=== PATIENT | female | born 1930 | race Caucasian/White ===

== ENCOUNTER 2020-01-30 15:38 | Inpatient (IN) | payer MEDICARE ==
[2020-01-30] MEDS ORDERED: Dextrose 50% Abboject 50 ML SYRINGE SLOW IVP PRN (17:47)
[2020-01-30] MEDS ORDERED: Dextrose 5% in Water 1,000 ML IV PRN (17:47)
[2020-01-30] MEDS ORDERED: Ondansetron PF 4 MG/2 ML Vial IVP PRN (17:47)
[2020-01-30] MEDS ORDERED: traMADol HCl 50 MG TAB PO PRN ×2 (17:47)
[2020-01-30] MEDS ORDERED: Ondansetron ODT 4 MG TAB PO PRN (17:47)
[2020-01-30] MEDS ORDERED: Sodium Chloride 0.9% 1,000 ML IV SCH (17:47)
[2020-01-30] MEDS: Acetaminophen 325 MG TAB PO SCH ×2 (18:25→23:08)
--- NOTE | 2020-01-30 20:21 | HP ---
REQUESTING PHYSICIAN: Dr. Escoto from [facility]. ATTENDING SURGEON: Dr. Bowie. CONSULTATION: Orthopedics, Dr. Sanabria. HISTORY OF PRESENT ILLNESS: The patient is an 89-year-old woman, who lives independently at home in an apartment, when she slipped and fell, landing on her buttocks. She had difficulty moving and she was able to be taken to the hospital in [place], where she underwent evaluation and examination and was noted to have a fracture to her pelvis that included her inferior and superior pubic rami on the right with the fracture extending into the acetabular component of her right hip prosthesis. The patient was then transferred to our facility to undergo Orthopedic evaluation. The patient denied any loss of consciousness or syncopal episodes. ALLERGIES: NONE. CURRENT MEDICATIONS: The patient is unsure of her medications. She takes "something for her blood pressure and something for her heart." Previous admission history and physical list Coreg as her medication and hydrocodone 5/325. PAST MEDICAL HISTORY: CHF and hypertension. PAST SURGICAL HISTORY: Back surgery. SOCIAL HISTORY: The patient lives independently alone. She ambulates using a cane or a walker. She denies drug, tobacco, or alcohol use. REVIEW OF SYSTEMS: A 10-point review of systems is negative unless otherwise stated. PHYSICAL EXAMINATION: VITAL SIGNS: Temperature is 97.5, heart rate 66, blood pressure 129/55, respirations 18, oxygen saturation is 92% on room air. GENERAL: The patient is resting comfortably in bed. She is awake and alert. She has minimal confusion, mainly regarding her current location as to which hospital she had been moved to. Otherwise, she follows commands. Her [place] Coma Scale will be 15. HEENT. Head is normocephalic and atraumatic. Eyes, extraocular motion intact. PERRLA bilaterally. Ears are atraumatic without discharge. Nose is atraumatic without discharge. Oropharynx is clear. NECK: Nontender. Trachea is midline with no JVD. CHEST: Clear to auscultation with good inspiratory and expiratory effort. HEART: Regular rate and rhythm. ABDOMEN: Soft, flat, nontender with active bowel sounds. PELVIS: There is tenderness to palpation, right greater than left aspect. EXTREMITIES: Neurovascularly intact x4. LABORATORY FINDINGS: White blood cell count 10.3, hemoglobin 12.7, hematocrit 39.7, platelets 70. Sodium 144, potassium 3.7, chloride 108, CO2 of 26, BUN 24, creatinine 0.97, glucose 100. Troponin is less than 0.010. COVID test is pending. Urinalysis is pending. RADIOGRAPHIC FINDINGS: AP pelvis shows no acute fracture or dislocation identified. Views of the right hip show postop changes of the total hip arthroscopy. No fracture or dislocation is identified. CT of the pelvis shows a right superior and inferior pubic rami fractures with the superior pubic rami fracture extending into the acetabular component of the right hip prosthesis. ASSESSMENT AND PLAN: 1. Status post ground level fall. 2. Right inferior and superior pubic rami fracture with extension into the acetabulum. 3. Acute pain secondary to above. Plan will be to admit the patient to the surgical floor. Initial discussion with Orthopedics reports that she is likely to be treated nonoperatively and be nonweightbearing on the right. They will reassess her tomorrow. We will begin physical and occupational therapy, diet, pain control, pulmonary toilet, gastritis and mechanical VTE prophylaxis. We have asked the nurses to reconcile her home medications, so that we may resume any medications. The evaluation, examination, laboratory and radiographic findings were discussed with Dr. Bowie prior to this dictation. Job ID: [id number]
[2020-01-30] MEDS: Famotidine 20 MG TAB PO SCH (21:15)
[2020-01-30] MEDS: Ibuprofen 600 MG TAB PO SCH (21:15)
[2020-01-31 01:53] LABS: Bacteria/HPF None Seen HPF (None Seen); Bilirubin Negative (Negative); Blood, Urine Negative (Negative); Clarity Clear (Clear); Glucose, Urine (Dipstick) Normal (Negative); Ketone, Urine Negative (Negative); Leukocyte 250 Leu/uL (Negative); Nitrite Negative (Negative); Protein, Urine (Dipstick) Negative (Neg-Trace); Specific Gravity, Urine 1.008 (1.002-1.036); Squamous Epithelial 0-3 HPF (0-3); Urobilinogen Normal mg/dL (Less than 2)
[2020-01-31 01:55] LABS: Urine Culture Reflex Yes Yes
[2020-01-31 04:28] LABS: SARS-CoV-2 MS2 Positive; SARS-CoV-2 N Gene Negative; SARS-CoV-2 S Gene Negative; SARS-CoV-2 by NAA Not Detected (NotDetected); SARS-CoV-2 orf1ab Negative
[2020-01-31] MEDS: Ibuprofen 600 MG TAB PO SCH ×3 (05:06→21:24)
[2020-01-31] MEDS: Acetaminophen 325 MG TAB PO SCH ×3 (05:06→17:49)
[2020-01-31 05:54] LABS: #Basophils 0.1 thou/uL (0.0-0.2); #Eosinphils 0.3 thou/uL (0.0-0.7); #Lymphocytes 2.8 thou/uL (1.20-3.40); #Monocytes 0.5 thou/uL (0.11-0.59); #Neutrophils 4.1 thou/uL (1.40-6.50); %Basophils 0.8 % (0.0-1.0); %Monocytes 6.4 % (0.0-10.0); %Neutrophils 52.8 % (42.0-75.0); Hemoglobin 12.4 g/dL (12.0-16.0); Mean Corpuscular HGB CONC 32.1 g/dL (32.0-36.0); Mean Corpuscular Hemoglobin 32.9 pg (27.0-31.0); Mean Platelet Volume 10.2 fL (7.4-10.4); Platelet Count 76 thou/uL (130-400); Red Blood Cell (RBC) Count 3.78 mill/uL (4.20-5.40); White Blood Cell (WBC) Count 7.7 thou/uL (4.8-10.8)
[2020-01-31 06:06] LABS: Phosphorus 2.4 mg/dL (2.3-4.7)
[2020-01-31 06:08] LABS: Anion Gap 13 mmol/L (10-20); BUN (Urea Nitrogen) 22 mg/dL (9.8-20.1); Calc. Creatinine Clearance 40 mL/min (70-130); Calcium 8.2 mg/dL (7.8-10.44); Carbon Dioxide 25 mmol/L (23-31); Chloride 110 mmol/L (98-107); Estimated GFR-MDRD 61; Glucose 94 mg/dL (83-110); Magnesium 1.8 mg/dL (1.6-2.6); Potassium 3.7 mmol/L (3.5-5.1); Sodium 144 mmol/L (136-145)
[2020-01-31] MEDS ORDERED: Magnesium Sulfate 2 GM in Sodium Chloride 0.9% 250 ML 250 ML IVPB SCH (08:00)
[2020-01-31] MEDS: Famotidine 20 MG TAB PO SCH ×2 (08:20→21:25)
[2020-01-31] MEDS ORDERED: FLU VACC QS2020-21(65YR UP)/PF 240 MCG/0.7 ML SYRINGE IM ONE (09:00)
[2020-01-31] MEDS ORDERED: RisperDAL M-TAB 1 MG TAB SL SCH (09:15)
--- NOTE | 2020-01-31 19:49 | PRG ---
DATE OF SERVICE: 01/31/2020 SUBJECTIVE: The patient is currently on the surgical floor. She was admitted yesterday as a transfer from [facility] after she sustained a ground level fall and had a right inferior and superior pubic rami fracture that extended into her acetabulum. The patient was evaluated by Orthopedics and it was determined that she would be treated nonoperatively. She had no issues overnight. This morning, she did not want to work with therapy, but she did transfer to wheelchair and was interacting with staff, which seemed to calm her greatly. She tolerated a diet and her pain was controlled. PHYSICAL EXAMINATION: VITAL SIGNS: Temperature 98.3, heart rate 60, blood pressure 169/58, respirations 16, oxygen saturation 91% on room air. GENERAL: The patient is resting in a wheelchair, she is actually at a nurse's station. She appears in no distress. She is interactive and appropriate to me. HEENT: Unremarkable. CHEST: Equal rise and fall. ABDOMEN: Soft, nontender with active bowel sounds. EXTREMITIES: The patient is moving all 4 extremities freely and there is no apparent edema. LABORATORY FINDINGS: White blood cell count 7.1, hemoglobin 12.4, hematocrit 38.6, platelets 76. Sodium 144, potassium 3.7, chloride 110, CO2 of 25, BUN 22, creatinine 0.87, glucose 94, magnesium 1.8, phosphorus 2.4. ASSESSMENT AND PLAN: 1. Status post ground level fall. 2. Right inferior and superior pubic rami fracture with extension into acetabulum, being managed nonoperatively. 3. Urinary tract infection, present on admission. The patient is started on antibiotics, and awaiting culture and sensitivity results. Plan will be to continue supportive care, encourage physical and occupational therapy, and await placement decision. Job ID: [id number]
[2020-01-31] MEDS: Nitrofurantoin Monohyd/M-Cryst 100 MG CAP PO SCH (21:25)
[2020-02-01] MEDS: Acetaminophen 325 MG TAB PO SCH ×4 (01:40→18:51)
[2020-02-01] MEDS: Cyclobenzaprine 10 MG TAB PO PRN (01:41)
--- NOTE | 2020-02-01 04:25 | HP ---
ADDENDUM: This is an addendum to the H and P dictated by Edmond Balderrama, Trauma, PA. For full details, please see that H and P, the details of which I have confirmed. In short, Ms. Deshpande is an 89-year-old woman who reportedly slipped and fell landing on her buttocks. She was noted to have inferior and superior pubic rami fractures extending into the acetabular component of right hip prosthesis. She was transferred to [place] for orthopedic evaluation. She is currently fairly comfortable and denying any significant pain in her hip or pelvis. She was unable to give much medication, very vague history, but reportedly has a history of heart failure and back surgery and hip replacement in the past. PHYSICAL EXAMINATION: Complete physical examination was performed. HEENT: Head was atraumatic. Pupils were equal. Extraocular movements were intact. She denies blurred vision or diplopia. Facial movements were symmetric. She had no tenderness to mid face or neck. NECK: Supple without lymphadenopathy. HEART: Regular in its rate and rhythm without murmurs, rubs, or gallops. LUNGS: Clear to auscultation bilaterally. ABDOMEN: Soft, nontender, nondistended. EXTREMITIES: She was able to move both lower extremities and has normal distal sensation, capillary refill and no deformities of her legs or arms. LABORATORY DATA: Fairly unremarkable. CT of the pelvis showed right superior and inferior pubic ramus fractures with a superior pubic ramus fracture . Initial report from Orthopedics was of a plan to treat her non-operatively, nonweightbearing on right. Physical Therapy, Occupational Therapy, and Rehab have been consulted. The nurses were able to obtain her medication list include, 1. Budesonide. 2. Carvedilol. 3. Celebrex. 4. Duloxetine. 5. Vitamin D. 6. Synthroid. 7. Quetiapine. 8. . Job ID: [id number]
[2020-02-01] MEDS: Ibuprofen 600 MG TAB PO SCH ×3 (06:30→22:23)
[2020-02-01] MEDS: Nitrofurantoin Monohyd/M-Cryst 100 MG CAP PO SCH (09:59)
[2020-02-01] MEDS: Famotidine 20 MG TAB PO SCH ×2 (09:59→22:23)
--- NOTE | 2020-02-01 11:42 | CON ---
DATE OF CONSULTATION: CONSULTING PROVIDER: Edmond Balderrama PA-C HISTORY OF PRESENT ILLNESS: Ms. Deshpande is an 89-year-old female, who lives independently. The patient tripped and fell approximately 2 days ago. She landed on her right side. She was found to have a right-sided pubic ramus fracture with extension into the acetabulum on x-ray. She was initially seen at [facility] and then transferred over to [place] for further care. She is awaiting rehab placement. She has received pain control. She is currently comfortable. ALLERGIES: NONE. PAST MEDICAL HISTORY: Of CHF and hypertension. PAST SURGICAL HISTORY: Lumbar back surgery. SOCIAL HISTORY: The patient denies tobacco, alcohol, or drug use. She previously ambulates with a cane or sometimes a walker. REVIEW OF SYSTEMS: Positive for right hip pain. Otherwise, negative 10-point review of systems. IMAGING STUDIES: CT scan of the right hip and pelvis demonstrates a hemiarthroplasty of the hip. There is also what appears to be a fracture of the superior ramus with extension through the acetabulum without significant displacement. The fracture does involve the acetabular dome. PHYSICAL EXAMINATION: VITAL SIGNS: Temperature is 97.3, pulse is 76, respiratory rate of 18, oxygen saturation 94%, blood pressure is 169/84. GENERAL: She is alert, lying supine, in no apparent distress. LUNGS: Breathing comfortably. ABDOMEN: Soft, nontender, nondistended. MUSCULOSKELETAL: The right lower extremity has pain with motion. Leg lengths appeared to be equal. She is able flex and extend the foot and ankle. She has palpable dorsalis pedis pulse. IMPRESSION: Right acetabulum fracture in an elderly female. PLAN: At this point, the patient will have nonoperative treatment. I am hopeful her fracture will go ahead and heal. She will need to keep weight off the leg and should be nonweightbearing on her right leg at least 6 weeks, likely 8 weeks. She can mobilize to a chair. She will have pain control. DVT prophylaxis as needed. I would like to re-evaluate her in the clinic in approximately 1 month with repeat x-ray. Job ID: [id number]
[2020-02-01] MEDS ORDERED: Carvedilol 6.25 MG TAB PO SCH (11:45)
[2020-02-01] MEDS ORDERED: Magnesium 2 GM/50 ML 2 GM in Premix Bag 1 BAG IVPB SCH (12:00)
[2020-02-01] MEDS ORDERED: cloNIDine 0.1 MG TAB PO SCH (15:30)
--- NOTE | 2020-02-01 16:54 | PRG ---
DATE OF SERVICE: 02/01/2020 SUBJECTIVE: The patient remains in the surgical floor. She is status post ground level fall, was transferred from the [facility] for nonoperative pelvic fractures. She has begun working with Physical and Occupational therapy, though today she was very tired and declined working with the therapist. She is tolerating a diet. Her pain is controlled, but was noted that the patient was hypertensive and had not been restarted on her home medications. This was immediately corrected. PHYSICAL EXAMINATION: VITAL SIGNS: Temperature is 98.2, heart rate 73, blood pressure 178/81, respirations 18, oxygen saturation 91% on room air. GENERAL: The patient is resting comfortably in bed. She was asleep at the time of my visit. She did wake up to verbal stimuli and appeared at her baseline. She would answer very simple questions, but was A and O x2, consistent with my initial interview with her on admission. HEENT: Unremarkable. LUNGS: Clear to auscultation with moderate inspiratory and expiratory effort. HEART: Regular rate and rhythm. ABDOMEN: Soft, nontender with active bowel sounds. EXTREMITIES: Neurovascularly intact x4. LABORATORY DATA: There are no labs or radiographs to review this morning. ASSESSMENT: 1. Status post ground level fall. 2. Right inferior and superior pubic rami fracture with extension into acetabulum, being managed non operatively. 3. Urinary tract infection, present on admission, awaiting culture and sensitivity, currently on antibiotics. PLAN: To continue physical and occupational therapy and await placement decision. Job ID: [id number]
[2020-02-01] MEDS ORDERED: cloNIDine 0.1 MG TAB PO PRN (17:27)
[2020-02-01] MEDS ORDERED: Sodium Chloride 0.9% 1,000 ML IV SCH (17:30)
[2020-02-01] MEDS: Aspirin 81 mg Enteric Coated Tablet PO SCH (22:21)
[2020-02-01] MEDS: Amoxicillin/Potassium Clav 875 MG TAB PO SCH (22:21)
[2020-02-01] MEDS: DULoxetine 30 MG CAP PO SCH (22:22)
[2020-02-01] MEDS: Senokot S 8.6-50 MG TAB PO SCH (22:23)
[2020-02-01] MEDS: Carvedilol 6.25 MG TAB PO SCH (22:24)
[2020-02-02] MEDS: Acetaminophen 325 MG TAB PO SCH ×7 (00:24→23:45)
[2020-02-02] MEDS: Cyclobenzaprine 10 MG TAB PO PRN (01:11)
[2020-02-02] MEDS ORDERED: RisperDAL M-TAB 1 MG TAB SL SCH (02:00)
[2020-02-02] MEDS ORDERED: hydrALAZINE 20 MG/ML VIAL SLOW IVP SCH (02:15)
[2020-02-02] MEDS: Levothyroxine Sodium 75 MCG TAB PO SCH (06:39)
[2020-02-02] MEDS: Ibuprofen 600 MG TAB PO SCH ×3 (06:39→21:58)
[2020-02-02] MEDS: DULoxetine 30 MG CAP PO SCH ×2 (16:24→21:57)
[2020-02-02] MEDS: Amoxicillin/Potassium Clav 875 MG TAB PO SCH ×2 (16:25→21:57)
[2020-02-02] MEDS: Carvedilol 6.25 MG TAB PO SCH ×2 (16:25→22:00)
[2020-02-02] MEDS: Aspirin 81 mg Enteric Coated Tablet PO SCH ×2 (17:24→22:00)
[2020-02-02] MEDS: CeleCOXIB 100 MG CAP PO SCH (17:24)
[2020-02-02] MEDS: Famotidine 20 MG TAB PO SCH ×2 (17:24→22:08)
[2020-02-02] MEDS: Polyethylene Glycol 3350 17 GM Packet PO SCH (17:25)
[2020-02-02] MEDS: Senokot S 8.6-50 MG TAB PO SCH ×2 (17:25→22:08)
--- NOTE | 2020-02-02 20:01 | PRG ---
DATE OF SERVICE: 02/02/2020 SUBJECTIVE: The patient remains on the surgical floor. She is status post ground level fall, which she sustained a right inferior and superior pubic rami fracture with extension into the acetabulum. The patient is being treated nonoperatively and is awaiting placement. The patient is tolerating a diet. Her pain is controlled. PHYSICAL EXAMINATION: VITAL SIGNS: Temperature 97.3, heart rate 95, blood pressure 134/73, respirations 18, oxygen saturation 92% on room air. GENERAL: The patient is resting comfortably in bed. She was awake and somewhat interactive today. This appears to be her baseline since my interviews with her during this admission. HEENT: Unremarkable. LUNGS: Clear to auscultation with moderate inspiratory and expiratory effort. HEART: Regular rate and rhythm. ABDOMEN: Soft, nontender with active bowel sounds. EXTREMITIES: Neurovascularly intact x4. LABORATORY DATA: There are no labs or radiographs reviewed this morning. ASSESSMENT: 1. Status post ground level fall. 2. Right inferior and superior pubic rami fracture with extension in the acetabulum, being treated nonoperatively. 3. Urinary tract infection, present on admission. Urine culture results show Enterococcus faecalis and nonhemolytic Streptococcus. The patient is currently on Augmentin, which shows positive susceptibility. We will continue these antibiotics. PLAN: Plan will be to continue physical and occupational therapy, antibiotics as discussed, and await placement decision. The patient's nurse today was able to contact family and we will pass this along for Case Management to work on placement. The patient has been restarted on all of her home medications. The patient has aspirin twice a day for VTE prophylaxis. Job ID: [id number]
[2020-02-03] MEDS: Acetaminophen 325 MG TAB PO SCH ×2 (06:52→13:46)
[2020-02-03] MEDS: Levothyroxine Sodium 75 MCG TAB PO SCH (06:52)
[2020-02-03] MEDS: Ibuprofen 600 MG TAB PO SCH (06:53)
[2020-02-03] MEDS: Senokot S 8.6-50 MG TAB PO SCH (09:44)
[2020-02-03] MEDS: Aspirin 81 mg Enteric Coated Tablet PO SCH (09:44)
[2020-02-03] MEDS: Amoxicillin/Potassium Clav 875 MG TAB PO SCH (09:44)
[2020-02-03] MEDS: Carvedilol 6.25 MG TAB PO SCH (09:44)
[2020-02-03] MEDS: CeleCOXIB 100 MG CAP PO SCH (09:44)
[2020-02-03] MEDS: Polyethylene Glycol 3350 17 GM Packet PO SCH (09:44)
[2020-02-03] MEDS: DULoxetine 30 MG CAP PO SCH (09:44)
[2020-02-03] MEDS: Famotidine 20 MG TAB PO SCH (09:44)
[2020-02-03 15:45] VITALS: BP 122/84; TEMP 97.4
--- NOTE | 2020-02-04 05:32 | PRG ---
DATE OF SERVICE: 02/03/2020 SUBJECTIVE: Ms. Deshpande is an 89-year-old female who is status post ground level fall from which she sustained a right inferior and superior pubic rami fracture with extension into the acetabulum. She is being treated nonoperatively and is currently awaiting placement. She is tolerating a diet. Her pain was well controlled. This morning, she is resting comfortably without complaints. PHYSICAL EXAMINATION: VITAL SIGNS: Temperature 97.7 Fahrenheit, pulse 65, blood pressure 127/65, respirations 16, and 93% on room air. GENERAL: She is resting comfortably in bed. She is easily arousable and conversant while awake. GCS 14 (-1 confusion, baseline). HEENT: Unremarkable. LUNGS: Clear to auscultation bilaterally. HEART: Regular rate and rhythm. EXTREMITIES: Neurovascularly intact. LABORATORY DATA: There are no new labs or imaging to be reviewed this morning. ASSESSMENT: 1. Status post ground level fall. 2. Right inferior and superior pubic rami fracture with extension into the acetabulum, being treated nonoperatively. 3. Urinary tract infection, present on admission. Urine culture shows Enterococcus faecalis and nonhemolytic Streptococcus. She is currently being treated with Augmentin for this, today is day 2 of antibiotic therapy. We will continue these antibiotics. PLAN: She will continue with physical and occupational therapy and antibiotics as above while awaiting placement. Yesterday, her home medicines were restarted and she is currently taking aspirin twice daily for VTE prophylaxis. Job ID: [id number] MTDD
[2020-02-04] MEDS ORDERED: Ergocalciferol 1.25 MG(50,000 UNITS) CAP PO SCH (09:00)
== END 2020-02-03 18:00 | DRG 535 ==
LOC: SURG B 17:25 → OBSVTOIN 17:25
PROVIDERS: ADMIT Surgery; ATTEND Surgery
DX: S32.591A Other specified fracture of right pubis, initial encounter for closed fracture (principal); S32.401A Unspecified fracture of right acetabulum, initial encounter for closed fracture; N39.0 Urinary tract infection, site not specified; M97.01XA Periprosthetic fracture around internal prosthetic right hip joint, initial encounter; Z20.828 Contact with and (suspected) exposure to other viral communicable diseases; W01.0XXA Fall on same level from slipping, tripping and stumbling without subsequent striking against object, initial encounter; I11.0 Hypertensive heart disease with heart failure; I50.9 Heart failure, unspecified; B95.2 Enterococcus as the cause of diseases classified elsewhere; B95.4 Other streptococcus as the cause of diseases classified elsewhere; Y83.1 Surgical operation with implant of artificial internal device as the cause of abnormal reaction of the patient, or of later complication, without mention of misadventure at the time of the procedure; Z98.890 Other specified postprocedural states
CPT/HCPCS: 36415; 72170; 72192; 80048; 80053; 81001; 83735; 84100; 84484; 85025; 87077; 87086; 87186; 87635; 93005; 96374; J1885; J3475; U0003

== ENCOUNTER 2020-02-25 20:21 | Emergency (ER) | payer MEDICARE ==
--- NOTE | 2020-02-25 21:48 | RAD ---
EXAM: 2 views of the right femur HISTORY: Leg pain COMPARISON: None FINDINGS: The patient is status post right hip arthroplasty without perihardware lucency or fracture. There is no evidence of acute fracture or dislocation. No soft tissue swelling is seen. Vascular calcifications are seen. IMPRESSION: No evidence of acute osseous abnormality.
--- NOTE | 2020-02-25 21:57 | RAD ---
EXAM: 2 views of the right tibia/fibula HISTORY: Leg pain after fall COMPARISON: None FINDINGS: There is no evidence of acute fracture or dislocation. No soft tissue swelling is seen. No degenerative changes are seen in the knee or ankle. IMPRESSION: No evidence of acute osseous abnormality.
--- NOTE | 2020-02-25 22:09 | CT ---
EXAM: CT brain without contrast HISTORY: Fall with head trauma COMPARISON: 10/31/2019 TECHNIQUE: Multiple contiguous axial images were obtained and a CT of the brain without contrast. FINDINGS: There are scattered hypodensities in the subcortical and periventricular white matter consi stent with small vessel ischemic disease. There is no evidence of hydrocephalus, intracranial hemorrhage, or extra-axial fluid collection. The calvarium and overlying soft tissues are unremarkable. The visualized paranasal sinuses and masto id air cells are well aerated. IMPRESSION: No evidence of acute intracranial abnormality
--- NOTE | 2020-02-25 22:12 | CT ---
EXAM: CT of the cervical spine without contrast HISTORY: Fall with head trauma and neck pain COMPARISON: 11/12/2018 TECHNIQUE: Multiple contiguous axial images were obtained in a CT of the cervical spine without contr ast. Sagittal and coronal reformats were performed. FINDINGS: The vertebral bodies demonstrate normal height and alignment without fracture or subluxatio n. Moderate degenerative changes are seen in the cervical spine with intervertebral disc space narrowing at multiple levels and surrounding osteophyte formation. No prevertebral soft tissue swell ing is seen. The posterior facets are well aligned. Normal alignment of the skull base with the cervical spine is seen. The lung apices and cervical soft tissues are unremarkable. IMPRESSION: No evidence of acute osseous abnormality of the cervical spine.
== END 2020-02-25 23:25 | disposition home or self-care (01) ==
LOC: ERS 20:21
DX: S70.11XA Contusion of right thigh, initial encounter (principal); I11.0 Hypertensive heart disease with heart failure; I50.9 Heart failure, unspecified; Z79.899 Other long term (current) drug therapy; W19.XXXA Unspecified fall, initial encounter; Y92.129 Unspecified place in nursing home as the place of occurrence of the external cause
CPT/HCPCS: 70450; 72125